=== PATIENT | female | born 1955 | race Caucasian/White ===

== ENCOUNTER → 2020-02-25 | Outpatient (CLI) | payer MEDICARE, OTHER ==
[~2020-02-25] MED LIST: CETI10CA13 PO; LEVO25TA5 PO; MECL-86 PO; PRAV40TA PO
== END ==
LOC: M LABSMTC 10:26
PROVIDERS: ATTEND Internal Medicine Gastroenterology
DX: Z03.818 Encounter for observation for suspected exposure to other biological agents ruled out (principal); Z11.59 Encounter for screening for other viral diseases
CPT/HCPCS: C9803; U0003

== ENCOUNTER 2020-02-28 09:15 | Day surgery (SDC) | payer MEDICARE, OTHER ==
[~2020-02-28] VITALS: Ht 162.6 cm; Wt 90.7 kg
[~2020-02-28 09:15] MED LIST changes: +NS 1,000 ML IV ONE
[2020-02-28] MEDS ORDERED: propofoL 500 MG/50 ML VIAL As Ordered ONE (10:40)
[2020-02-28] MEDS ORDERED: LIDOCAINE 2% 100MG/5ML SDV (FOR ANES.) As Ordered ONE (10:40)
--- NOTE | 2020-02-28 10:58 | ROOR ---
Patient Name: Irene Moore Procedure Date: 02/28/2020 10:37 AM Date of : 1955 Age: 64 Room: [facility] Gender: Female Note Status: Finalized Procedure: Total Colonoscopy to Cecum Indications: Colon cancer screening in patient at increased risk: Colorectal cancer in mother Providers: Edwin Ann MD Referring MD: Apple Connelly NP Requesting Provider: Medicines: Monitored Anesthesia Care Complications: No immediate complications. Procedure: Pre-Anesthesia Assessment: - The heart rate, respiratory rate, oxygen saturations, blood pressure, adequacy of pulmonary ventilation, and response to care were monitored throughout the procedure. The Colonoscope was introduced through the anus and advanced to the cecum, identified by appendiceal orifice and ileocecal valve. The colonoscopy was performed without difficulty. The patient tolerated the procedure well. The quality of the bowel preparation was excellent. Findings: The perianal and digital rectal examinations were normal. Non-bleeding internal hemorrhoids were found during retroflexion. The hemorrhoids were small and Grade I (internal hemorrhoids that do not prolapse). Multiple small and large-mouthed diverticula were found in the recto-sigmoid colon, sigmoid colon and descending colon. The exam was otherwise without abnormality on direct and retroflexion views. Impression: - Non-bleeding internal hemorrhoids. - Diverticulosis in the recto-sigmoid colon, in the sigmoid colon and in the descending colon. - The examination was otherwise normal on direct and retroflexion views. - No specimens collected. - The exam was otherwise normal to the cecum. Recommendation: - Patient has a contact number available for emergencies. The signs and symptoms of potential delayed complications were discussed with the patient. Return to normal activities tomorrow. Written discharge instructions were provided to the patient. - High fiber diet. - Discharge patient to home. - Continue present medications. - Repeat colonoscopy in 5 years for screening purposes. - Return to referring physician. - The findings and recommendations were discussed with the patient. Edwin Ann MD Edwin Ann MD 02/28/2020 10:57:54 AM Electronically signed by Edwin Ann MD Number of Addenda: 0 Note Initiated On: 02/28/2020 10:37 AM Estimated Blood Loss: Estimated blood loss: none.
[2020-02-28 11:20] VITALS: BP 139/90
== END 2020-02-28 11:26 | disposition home or self-care (01) ==
LOC: M OPP 09:15
PROVIDERS: ATTEND Internal Medicine Gastroenterology
DX: Z12.11 Encounter for screening for malignant neoplasm of colon (principal); Z80.0 Family history of malignant neoplasm of digestive organs; K57.30 Diverticulosis of large intestine without perforation or abscess without bleeding; K64.0 First degree hemorrhoids; E03.9 Hypothyroidism, unspecified; Z79.899 Other long term (current) drug therapy; Z87.891 Personal history of nicotine dependence

== ENCOUNTER → 2021-10-02 | Outpatient (CLI) | payer MEDICARE, OTHER ==
[~2021-10-02] MED LIST changes: -NS 1,000 ML IV ONE
== END ==
LOC: M SOG 10:27
PROVIDERS: ATTEND Orthopaedic Surgery Hand Surgery
DX: M25.541 Pain in joints of right hand (principal)

== ENCOUNTER → 2021-10-20 | Outpatient (REF) | payer MEDICARE, OTHER | LOC: M SFHCDERM 17:20 | PROVIDERS: ATTEND Physician Assistant | DX: L72.0 Epidermal cyst (principal) ==

== ENCOUNTER → 2021-11-14 | Outpatient (CLI) | payer MEDICARE, OTHER ==
[~2021-11-14] MED LIST changes: +ALLE180T33 PO; +APAP325T4 PO; +PRAV40TA2 PO; +PRIL20TA2 PO
== END ==
LOC: M LABSMTC 11:20
PROVIDERS: ATTEND Anesthesiology
DX: Z01.818 Encounter for other preprocedural examination (principal); Z11.52 Encounter for screening for COVID-19

== ENCOUNTER 2021-11-19 09:50 | Day surgery (SDC) | payer MEDICARE, OTHER ==
[~2021-11-19] VITALS: Ht 162.6 cm; Wt 92.7 kg
[~2021-11-19 09:50] MED LIST changes: +BACITRACIN OINTMENT 30GM TUBE As Ordered ONE; +BUPIVACAINE HCL 0.25% 30ML VIAL As Ordered ONE
[2021-11-19] MEDS ORDERED: LIDOCAINE W/EPINEPHRINE 1% 20ML VIAL As Ordered ONE (10:43)
[2021-11-19] MEDS ORDERED: SODIUM BICARBONATE 8.4% INJ 50MEQ 50 ML VIAL ID ONE (11:00)
[2021-11-19] MEDS ORDERED: LIDOCAINE W/EPINEPHRINE 1% 20ML VIAL ID ONE (11:00)
[2021-11-19 14:20] VITALS: BP 140/70
== END 2021-11-19 14:22 | disposition home or self-care (01) ==
LOC: M SDC 09:50
PROVIDERS: ATTEND Orthopaedic Surgery Hand Surgery
DX: M65.341 Trigger finger, right ring finger (principal); I10 Essential (primary) hypertension; E03.9 Hypothyroidism, unspecified; E78.5 Hyperlipidemia, unspecified; K21.9 Gastro-esophageal reflux disease without esophagitis; Z87.891 Personal history of nicotine dependence; Z79.899 Other long term (current) drug therapy

== ENCOUNTER 2024-07-17 08:28 | Day surgery (SDC) | payer MEDICARE, OTHER ==
[~2024-07-17] VITALS: Ht 162.6 cm; Wt 94.6 kg
[~2024-07-17 08:28] MED LIST changes: -BACITRACIN OINTMENT 30GM TUBE As Ordered ONE; +BENEPOW18 PO; -BUPIVACAINE HCL 0.25% 30ML VIAL As Ordered ONE; +CALTTAB6 PO; +FAMO40TA3 PO; +OMEP40CA5 PO; +PRAV20TA2 PO
[2024-07-17] MEDS ORDERED: LIDOCAINE 2% 100MG/5ML SDV (FOR ANES.) As Ordered ONE (10:04)
[2024-07-17] MEDS ORDERED: propofoL 200 MG/20 ML VIAL As Ordered ONE (10:04)
[2024-07-17] MEDS ORDERED: fentaNYL 100 MCG/2 ML INJECTION As Ordered ONE (10:16)
[2024-07-17 10:47] VITALS: TEMP 97
[2024-07-17 11:02] VITALS: BP 175/90; O2SAT 95
== END 2024-07-17 11:13 | disposition home or self-care (01) ==
LOC: M OPP 08:28
PROVIDERS: ATTEND Internal Medicine Gastroenterology
DX: Z12.11 Encounter for screening for malignant neoplasm of colon (principal); Z80.0 Family history of malignant neoplasm of digestive organs; K64.0 First degree hemorrhoids; K57.30 Diverticulosis of large intestine without perforation or abscess without bleeding; K31.7 Polyp of stomach and duodenum; E78.5 Hyperlipidemia, unspecified; E03.9 Hypothyroidism, unspecified; K21.9 Gastro-esophageal reflux disease without esophagitis; M19.90 Unspecified osteoarthritis, unspecified site; Z87.891 Personal history of nicotine dependence; Z79.890 Hormone replacement therapy; Z79.899 Other long term (current) drug therapy
CPT/HCPCS: 43239; 88305; G0105; J3010

== ENCOUNTER → 2024-12-11 | Outpatient (REF) | payer MEDICARE, OTHER | LOC: M SFHCDERM 17:30 | PROVIDERS: ATTEND Physician Assistant | DX: D48.9 Neoplasm of uncertain behavior, unspecified (principal); C44.91 Basal cell carcinoma of skin, unspecified ==

== ENCOUNTER → 2025-04-27 | Outpatient (CLI) | payer MEDICARE, OTHER ==
[~2025-04-27] MED LIST changes: -PRAV20TA2 PO; +PRAV20TA78 PO; -PRAV40TA2 PO; +PRAV40TA85 PO
== END ==
LOC: M SLEEP 20:00
PROVIDERS: ATTEND Nurse Practitioner Adult Health
DX: G47.33 Obstructive sleep apnea (adult) (pediatric) (principal)